=== PATIENT | female | born 1960 | race Caucasian/White ===

== ENCOUNTER 2016-11-20 12:03 | Emergency (ER) | payer SELFPAY ==
[~2016-11-20] VITALS: Ht 170.2 cm; Wt 47.7 kg
[2016-11-20 12:10] VITALS: BP 142/65
== END 2016-11-20 13:51 | disposition home or self-care (01) ==
LOC: ED 12:03
DX: Z76.0 Encounter for issue of repeat prescription (principal)

== ENCOUNTER 2016-11-24 13:21 | Emergency (ER) | payer SELFPAY ==
[2016-11-24 15:45] VITALS: BP 104/71
== END 2016-11-24 15:45 | disposition home or self-care (01) ==
LOC: ED 13:21
DX: Z76.0 Encounter for issue of repeat prescription (principal); I10 Essential (primary) hypertension; F17.210 Nicotine dependence, cigarettes, uncomplicated; Z88.1 Allergy status to other antibiotic agents; Z88.8 Allergy status to other drugs, medicaments and biological substances
CPT/HCPCS: 99406